=== PATIENT | female | born 1995 | race Two or more races ===

== ENCOUNTER 2024-04-19 08:12 | Inpatient (IN) | payer MEDICAID, OTHER ==
[~2024-04-19] VITALS: Ht 180.3 cm; Wt 56.6 kg
--- NOTE | 2024-04-19 08:53 | ED.PDOC ---
History of Present Illness HPI Comments 28-year-old female who presents to the ER with no prior history associated to the chief complaint of chest pain for the past 1 week. On having tight and pressure-like chest pain as well as sided of the chest and radiate down to the epigastric area. Patient notes on having shortness of breath as well. PMHx depression and anxiety. SHx of DNCx2 and hernia repair. Social history of vape use but denies alcohol and substance use. Denies chills fever, N/V/D,or other associated symptoms, modifiers, or recent injuries at this time. 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 History Family History Family History: Reviewed,noncontributory to illness, Unknown Social History Smoker: Other (Vape) Alcohol: Denies ETOH Use Drugs: Denies Drug Use Lives In: Home Constitutional: denies: chills, diaphoresis, fatigue, fever, malaise, sweats, weakness, others EENTM: denies: blurred vision, double vision, ear bleeding, ear discharge, ear drainage, ear pain, ear ringing, eye pain, eye redness, hearing loss, mouth pain, mouth swelling, nasal discharge, nose bleeding, nose congestion, nose pain, photophobia, tearing, throat pain, throat swelling, voice changes, others Respiratory: denies: cough, hemoptysis, orthopnea, SOB at rest, shortness of breath, SOB with excertion, stridor, wheezing, others Cardiovascular: reports: chest pain; denies: dizzy spells, diaphoresis, Dyspnea on exertion, edema, irregular heart beat, left arm pain, lightheadedness, palpi tations, PND, syncope, others Gastrointestinal: denies: abdomen distended, abdominal pain, blood streaked bowels, constipated, diarrhea, dysphagia, difficulty swallowing, hematemesis, melena, nausea, poor appetite, poor fluid intake, rectal bleeding, rectal pain, vomiting, others Genitourinary: denies: abnormal vagina bleeding, burning, dyspareunia, dysuria, flank pain, frequency, hematuria, incontinence, pain, , vagina discharge, urgency, others Neurological: denies: dizziness, fainting, headache, left sided numbness, left sided weakness, numbness, paresthesia, pre-existing deficit, right sided numbness, right sided weakness, seizure, speech problems, tingling, tremors, weakness, others Musculoskeletal: denies: back pain, gout, joint pain, joint swelling, muscle pain, muscle stiffness, neck pain, others Integumetry: denies: bruises, change in color, change in hair/nails, dryness, laceration, lesions, lumps, rash, wounds, others Allergic/Immunocompromised: denies: Difficulty Healing, Frequent Infections, Hives, Itching, others Hematologic/Lymphatic: denies: anemia, blood clots, easy bleeding, easy bru ising, swollen glands, others Endocrine: denies: excessive hunger, excessive sweating, excessive thirst, e xcessive urination, flushing, intolerance to cold, intolerance to heat, unexplained weight gain, unexplained weight loss, others Psychiatric: denies: anxiety, bipolar disorder, depression, hopeless, panic disorder, schizophrenia, sleepless, suicidal, others All Other Systems: Reviewed and Negative Physical Exam General Appearance: No Apparent Distress, Normal HEENT: Normal ENT Inspection, Pharynx Normal, TMs Normal Neck: Full Range of Motion, Non-Tender, Normal, Normal Inspection Respiratory: Chest Non-Tender, Lungs Clear, No Accessory Muscle Use, No Respiratory Distress, Normal Breath Sounds Cardiovascular: No Edema, No JVD, No Murmur, No Gallop, Normal Peripheral Pulses, Regular Rate/Rhythm Breast Exam: Deferred Gastrointestinal: No Organomegaly, Non Tender, No Pulsatile Mass, Normal Bowel Sounds, Soft Genitalia: Deferred Pelvic: Deferred Rectal: Deferred Extremities: No calf tenderness, Normal capillary refill, Normal inspection, Normal range of motion, Non-tender, No pedal edema Musculoskeletal : Apperance: Normal Neurologic: Alert, sergeant of officers II-XII nml as Tested, No Motor Deficits, Normal Affect, Normal Mood, No Sensory Deficits Cerebellar Function: Normal Reflexes: Normal Skin: Dry, Normal Color, Warm Lymphatic: No Adenopathy Was a procedure done? Was a procedure done?: No Differential Dx Considerations may include: angina, ptx, pe, pneumonia, lung mass, costochondritis X-Ray, Labs, Meds, VS Vital Signs Date Time Temp Pulse Resp B/P (MAP) Pulse Ox O2 Delivery O2 Flow Rate FiO2 04/19/24 15:18 75 18 118/80 (93) 100 04/19/24 11:09 97.9 85 14 108/79 (89) 99 97.9 04/19/24 09:16 69 04/19/24 09:04 77 04/19/24 09:04 77 16 103/70 (81) 98 04/19/24 08:19 70 04/19/24 08:15 98.0 76 16 111/74 (86) 100 Lab Test 04/19/24 09:21 04/19/24 08:25 Range/Units Troponin I High Sensitivity < 3 L < 3 L </=34 ng/L White Blood Count 4.3 L 4.4-10.8 10^3/uL Red Blood Count 5.00 4.0-5.20 10^6/uL Hemoglobin 14.8 12.2-16.2 g/dL Hematocrit 44.4 36.0-46.0 % Mean Corpuscular Volume 88.8 80.0-100.0 fL Mean Corpuscular Hemoglobin 29.5 28.0-32.0 pg Mean Corpuscular Hemoglobin Concent 33.3 32.0-36.0 g/dL Red Cell Distribution Width 15.3 H 11.8-14.3 % Platelet Count 173 140-450 10^3/uL Mean Platelet Volume 9.5 6.9-10.8 fL Neutrophils (%) (Auto) 44.9 37.0-80.0 % Lymphocytes (%) (Auto) 44.3 10.0-50.0 % Monocytes (%) (Auto) 6.2 0.0-12.0 % Eosinophils (%) (Auto) 4.1 0.0-7.0 % Basophils (%) (Auto) 0.5 0.0-2.0 % Neutrophils # (Auto) 1.9 1.6-8.6 10 ^3/uL Lymphocytes # (Auto) 1.9 0.4-5.4 10 ^3/uL Monocytes # (Auto) 0.3 0-1.3 10 ^3/uL Eosinophils # (Auto) 0.2 0-0.8 10 ^3/uL Basophils # (Auto) 0 0-0.2 10 ^3/uL Nucleated Red Blood Cells 0.1 % Sodium Level 143 136-145 mmol/L Potassium Level 4.6 3.5-5.1 mmol/L Chloride Level 111 H 98-107 mmol/L Carbon Dioxide Level 27 20-31 mmol/L Anion Gap 5 5-15 Blood Urea Nitrogen 9 9-23 mg/dL Creatinine 0.89 0.550-1.02 mg/dL Glomerular Filtration Rate Calc 90 >90 mL/min BUN/Creatinine Ratio 10.1 10.0-20.0 Serum Glucose 91 74-106 mg/dL Calcium Level 9.8 8.7-10.4 mg/dL Beta HCG, Quantitative 1.7 1.5-4.2 mIU/mL Current Medications Medications (Trade) Dose Ordered Sig/Nydia Route Start Time Stop Time Status Last Admin Aspirin 162 mg ONCE ONCE PO 04/19/24 08:45 04/19/24 08:47 DC 04/19/24 08:59 Time of 1ST Reevaluation: 09:10 Reevaluation 1ST: Unchanged Time of 2ND Reevaluation: 15:28 Reevaluation 2ND: Unchanged Patient Education/Counseling: Diagnosis, Treatment, Prognosis Family Education/Counseling: No Family Present Additional Information External Notes-none Ordered Tests-EKG tests ordered and results reviewed- cbc, chem, trop, hcg Independent Hx or Reviewed Results- cxr. 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 also is on hormonal contraception. however, she does not have PE. for the ptx, she will be admitted for observation for resolution, with O2 therapy Departure 1 Departure Time of Disposition: 15:32 Impression: Primary Impression: Chest pain Qualified Codes: R07.9 - Chest pain, unspecified Additional Impression: Pneumothorax Qualified Codes: J93.11 - Primary spontaneous pneumothorax Disposition: ADMITTED INPATIENT Admit to: Tele Condition: Stable Discharged With: Self Critical Care Note Critical Care Time?: Yes (55 min-critical care time only) Critical care comment: due to the real possibility of patient's condition deteriorating, his care requires my highest attention and readiness to intervene. i assessed the patient, ordered the proper tests and treatments, reassessed him for response, formulated a plan, discussed it with medical personnel, and consultants,. total time include more than 50% face to face contact and does not include any procedures Stability Stability form required: No Heart Score Heart Score: Heart Score Response (Comments) Value History Slightly Suspicious 0 EKG Normal 0 Age <45 0 Risk Factors No known risk factors 0 Troponin Normal limit 0 Total 0 I personally scribed for TRIP CHAVEZ MD ([email or web address]) on 04/19/24 at 08:53. Electronically submitted by David Cool ([email or web address]). TRIP CHAVEZ MD Apr 19, 2024 08:53
[2024-04-19 08:59] LABS: Basophils # (auto) 0 10 ^3/uL (0-0.2); Basophils % (auto) 0.5 % (0.0-2.0); Eosinophils # (auto) 0.2 10 ^3/uL (0-0.8); Eosinophils % (auto) 4.1 % (0.0-7.0); Hematocrit 44.4 % (36.0-46.0); Hemoglobin 14.8 g/dL (12.2-16.2); Lymphocytes # (auto) 1.9 10 ^3/uL (0.4-5.4); Lymphocytes % (auto) 44.3 % (10.0-50.0); Mean Corpuscular Hemoglobin 29.5 pg (28.0-32.0); Mean Corpuscular Hgb Conc. 33.3 g/dL (32.0-36.0); Mean Corpuscular Volume 88.8 fL (80.0-100.0); Monocytes # (auto) 0.3 10 ^3/uL (0-1.3); Monocytes % (auto) 6.2 % (0.0-12.0); Neutrophils # (auto) 1.9 10 ^3/uL (1.6-8.6); Neutrophils % (auto) 44.9 % (37.0-80.0); Nucleated Red Blood Cells % 0.1 %; Platelet Count (auto) 173 10^3/uL (140-450); Red Cell Distribution Width 15.3 % (11.8-14.3); White Blood Cell 4.3 10^3/uL (4.4-10.8)
[2024-04-19] MEDS: ASPirin 81 mg TAB PO ONE (08:59)
[2024-04-19 09:15] LABS: Chloride 111 mmol/L (98-107); Potassium 4.6 mmol/L (3.5-5.1); Sodium 143 mmol/L (136-145)
[2024-04-19 09:16] LABS: Anion Gap 5 (5-15); Carbon Dioxide 27 mmol/L (20-31)
[2024-04-19 09:17] LABS: Calcium 9.8 mg/dL (8.7-10.4)
--- NOTE | 2024-04-19 09:18 | ECG ---
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
[2024-04-19 09:21] LABS: Glucose 91 mg/dL (74-106)
[2024-04-19 09:22] LABS: BUN/Creatinine Ratio 10.1 (10.0-20.0); Blood Urea Nitrogen 9 mg/dL (9-23)
--- NOTE | 2024-04-19 12:24 | DVH ---
CHEST RADIOGRAPH Indication: cp Technique: Single frontal view of the chest was obtained COMPARISON: None FINDINGS: Lines and Tubes: None Lungs: Clear Pleura: No effusion. Prominent lucency in the left lung base. Cardiomediastinal contours: Unremarkable Bones: Scoliosis. IMPRESSION: Prominent lucency in the left lung base. Differential considerations could include pneumothorax, joe fact from patient positioning or prominent cyst/bleb in the left lung base. Clinical correlation advi sed. CT could be obtained to further evaluate if clinically indicated.
[2024-04-19] MEDS: IOHEXOL 350 MG/ML 100ML IJ ONE (14:21)
--- NOTE | 2024-04-19 14:57 | DVH ---
CTA Chest with intravenous contrast INDICATION: r/o PE, ptx COMPARISON: None TECHNIQUE: Multidetector spiral CTA of the chest was performed of the chest with intravenous contrast . PULMONARY ANGIOGRAPHY PROTOCOL was utilized using a bolus-tracking technique centered on the main p ulmonary artery. Axial, coronal and sagittal multiplanar and MIP reformats were performed. Radiation Dose : 1. Chest: CTDI volume is 20.7 mGy. Dose-length product is 185 mGy*cm The dose indicators for CT are the volume Computed Tomography (CT) Dose Index (CTDIvol) and the Dose Length Product (DLP), and are measured in units of mGy and mGy-cm, respectively. These indicators are not patient dose, but values generated from the CT scanner acquisition factors. The report includes radiation exposure data for exposures received during this examination. Findings: Pulmonary artery: No pulmonary embolism Lower neck: Normal thyroid. Lungs: No focal consolidation. Large bullae is seen in the left lower lobe which measures up to 9.8 cm. Heart/Vascular Structures: Normal heart size. No pericardial effusion. Lymph Nodes: No adenopathy Pleura: Trace left apical pneumothorax. No effusion. Musculoskeletal: No acute osseous abnormality. Soft tissues: Normal. Upper abdomen: Limited portions of the upper abdomen are unremarkable. IMPRESSION: 1. No pulmonary embolism. 2. Trace left apical pneumothorax. 3. Large bullae in the left lower lobe measures up to 9.8 cm.
--- NOTE | 2024-04-19 16:04 | DVHHP2 ---
History of Present Illness Reason for Visit: chest pain History of Present Illness 28 yo patient with a stated history of anxiety and depression came in for evaluation of chest pain described more pleuritic in nature was evaluated in the ed with a chest xray and ct can that showed suspected pneumothorax patient recommended for evaluation Review of Systems Constitutional: No: Fever, Chills, Sweats, Weakness, Malaise, Other Eyes: No: Pain, Vision change, Conjunctivae inflammation, Eyelid inflammation, Other, Redness ENT: No: Ear pain, Ear discharge, Nose pain, Nose discharge, Nose congestion, Mouth pain, Mouth swelling, Throat pain, Throat swelling, Other Respiratory: Shortness of breath; No: Cough, Dry, SOB with excertion, Wheezing, Hemoptysis, Pleuritic Pain, Sputum, Wheezing, Other Cardiovascular: Chest Pain; No: Palpitations, Orthopnea, Paroxysmal Noc. Dyspnea, Edema, Lt Headedness, Other Gastrointestinal: No: Nausea, Vomiting, Abdominal Pain, Diarrhea, Constipation, Melena, Hematochezia, Other Genitourinary: No Dysuria, No Frequency, No Incontinence, No Hematuria, No Retention, No Other Musculoskeletal: No: other, neck pain, shoulder pain, arm pain, back pain, hand pain, leg pain, foot pain Skin: No: Rash, Lesions, Jaundice, Bruising, Other Neurological: No: Weakness, Numbness, Incoordination, Change in speech, Confusion, Seizures, Other Allergies: Coded Allergies: Famotidine (Verified Allergy, Unknown, 04/19/24) Exam Vital Signs Vital Signs Date Time Temp Pulse Resp B/P (MAP) Pulse Ox O2 Delivery O2 Flow Rate FiO2 04/19/24 15:18 75 18 118/80 (93) 100 04/19/24 11:09 97.9 97.9 General Appearance: Alert, Oriented X3 HEENT: Atraumatic, PERRLA Respiratory: Clear to auscultation, Normal air movement Cardiovascular: Regular rate, Normal S1, Normal S2 Abdominal: Normal bowel sounds, Soft, No tenderness Extremities: No clubbing, No cyanosis Skin: No rashes, No breakdown Neuro: Normal gait, Normal speech Psych/Mental Status: Mood NL Labs/Xrays Labs Test 04/19/24 09:21 04/19/24 08:25 Range/Units Troponin I High Sensitivity < 3 L </=34 ng/L White Blood Count 4.3 L 4.4-10.8 10^3/uL Red Blood Count 5.00 4.0-5.20 10^6/uL Hemoglobin 14.8 12.2-16.2 g/dL Hematocrit 44.4 36.0-46.0 % Mean Corpuscular Volume 88.8 80.0-100.0 fL Mean Corpuscular Hemoglobin 29.5 28.0-32.0 pg Mean Corpuscular Hemoglobin Concent 33.3 32.0-36.0 g/dL Red Cell Distribution Width 15.3 H 11.8-14.3 % Platelet Count 173 140-450 10^3/uL Mean Platelet Volume 9.5 6.9-10.8 fL Neutrophils (%) (Auto) 44.9 37.0-80.0 % Lymphocytes (%) (Auto) 44.3 10.0-50.0 % Monocytes (%) (Auto) 6.2 0.0-12.0 % Eosinophils (%) (Auto) 4.1 0.0-7.0 % Basophils (%) (Auto) 0.5 0.0-2.0 % Neutrophils # (Auto) 1.9 1.6-8.6 10 ^3/uL Lymphocytes # (Auto) 1.9 0.4-5.4 10 ^3/uL Monocytes # (Auto) 0.3 0-1.3 10 ^3/uL Eosinophils # (Auto) 0.2 0-0.8 10 ^3/uL Basophils # (Auto) 0 0-0.2 10 ^3/uL Nucleated Red Blood Cells 0.1 % Sodium Level 143 136-145 mmol/L Potassium Level 4.6 3.5-5.1 mmol/L Chloride Level 111 H 98-107 mmol/L Carbon Dioxide Level 27 20-31 mmol/L Anion Gap 5 5-15 Blood Urea Nitrogen 9 9-23 mg/dL Creatinine 0.89 0.550-1.02 mg/dL Glomerular Filtration Rate Calc 90 >90 mL/min BUN/Creatinine Ratio 10.1 10.0-20.0 Serum Glucose 91 74-106 mg/dL Calcium Level 9.8 8.7-10.4 mg/dL Beta HCG, Quantitative 1.7 1.5-4.2 mIU/mL Assessment/Plan Assessment/Plan Marek Med/Surg Pneumothorax Nontraumatic High Flow conservative attempt to reduce Pulmonary evaluation possible underlying autoimmune source no acute signs of infection prn breathing treatments if required Plan discussed with: Patient Problem List: (1) Pneumothorax (2) Chest pain Date of Service: Apr 19, 2024 Billing Provider: SAURABH PETTIT MD Common Visit Codes: 71721-[id number] INP/OBS CARE (HIGH) SAURABH PETTIT MD Apr 19, 2024 16:04
[2024-04-19] MEDS ORDERED: ONDANSETRON HCL 4 MG/2 ML VIAL IV PRN (17:45)
[2024-04-19] MEDS ORDERED: HYDROcodone-ACET 5/325MG TAB PO PRN (17:45)
[2024-04-19] MEDS ORDERED: ACETAMINOPHEN 325 MG TAB PO PRN (17:45)
[2024-04-19] MEDS ORDERED: DOCUSATE SOD 100 MG CAP PO PRN (17:45)
[2024-04-19] MEDS ORDERED: MAALOX PLUS or MAALOX 30 ML PO PRN (17:45)
[2024-04-19] MEDS ORDERED: MORPHINE SULFATE INJ 2 MG/ml SYRG IV PRN (17:45)
[2024-04-19] MEDS ORDERED: guaiFENesin 200 MG/10 ML UD PO PRN (18:00)
--- NOTE | 2024-04-19 18:02 | DVHINCON2 ---
Date of service: Apr 19, [address] Blanco Reason for Consultation Apical pneumothorax, large left lower lobe bullae History of Present Illness 28-year-old woman history of anxiety, depression who presented with a chief complaint of chest pain for the last week. She was having pressure-like chest pain. He was on left side. Radiates to epigastric area. She notes shortness of breath as well. She has a history of vaping. She denies any alcohol or substance abuse. No fever or chills. No nausea, vomiting, diarrhea constipation. Pulmonary consultation is called for evaluation of apical pneumothorax and large left lower lobe bullae. Review of systems: 14 point review of systems is negative unless otherwise noted above. Past medical history: Anxiety, depression Past surgical history: D and C x2, hernia repair Medications: Reviewed Allergies: No known drug allergies. Family history: No family history of premature CAD. No family history of lung disease. Social history: Vaper, no alcohol or illicit drug use. Lives at home. Allergies: Coded Allergies: Famotidine (Verified Allergy, Unknown, 04/19/24) Current Medications Current Medications Medications (Trade) Dose Ordered Sig/Nydia Route PRN Reason Start Time Stop Time Status Last Admin Lorazepam (Ativan Tablet) 0.5 mg Q6HP PRN PO ANXIETY 04/19/24 17:45 Al Hydrox/Mg Hydrox/Simethicone (Maalox Plus) 30 ml Q6HP PRN PO FOR STOMACH DISTRESS 04/19/24 17:45 Docusate Sodium (Colace Capsule) 100 mg BIDPRN PRN PO FOR CONSTIPATION 04/19/24 17:45 Acetaminophen (Tylenol Tablet) 650 mg Q6HP PRN PO PAIN SCALE 1-3 OR TEMP>100.4 04/19/24 17:45 Temazepam (Restoril) 15 mg QHSP PRN PO FOR INSOMNIA 04/19/24 17:45 Acetaminophen/ Hydrocodone Bitart ([place] 5/325MG Tab) 1 tab Q4HP PRN PO MODERATE PAIN (4-6 PAIN SCALE) 04/19/24 17:45 Ondansetron HCl (Zofran) 4 mg Q4HP PRN IV NAUSEA / VOMITING 04/19/24 17:45 Morphine Sulfate 2 mg Q4HPRN PRN IV SEVERE PAIN (7-10 PAIN SCALE) 04/19/24 17:45 Vital Signs Vital Signs Date Time Temp Pulse Resp B/P (MAP) Pulse Ox O2 Delivery O2 Flow Rate FiO2 04/19/24 16:47 Room Air* 0 21 04/19/24 15:18 75 18 118/80 (93) 100 04/19/24 11:09 97.9 97.9 Physical Exam Gen.: Patient lying in bed in no apparent distress. She is breathing comfortably on room air. Head: Normocephalic, atraumatic Eyes: EOMI/PERRLA. Ears: Normal hearing. Normal anatomy. Neck/trachea: Trachea midline, supple. Nose: Normal external anatomy. Mouth: Moist mucous membranes. Chest: Fair air entry bilaterally. No wheezing or rhonchi. Cardio vascular: Positive S1, positive S2. Regular rate and rhythm. Abdomen: Positive bowel sounds in all 4 quadrants. Soft, non-tender, non- distended. : Deferred. Rectal: Deferred Skin: Warm, dry. Extremities: 2+ radial pulses bilaterally. No lower extremity edema. Neuro: Awake, alert, oriented x3. No gross motor or sensory deficits. Cranial nerves II through XII intact. Gait not assessed. Labs/Diagnostic Data Labs Test 04/19/24 09:21 04/19/24 08:25 Range/Units Troponin I High Sensitivity < 3 L </=34 ng/L White Blood Count 4.3 L 4.4-10.8 10^3/uL Red Blood Count 5.00 4.0-5.20 10^6/uL Hemoglobin 14.8 12.2-16.2 g/dL Hematocrit 44.4 36.0-46.0 % Mean Corpuscular Volume 88.8 80.0-100.0 fL Mean Corpuscular Hemoglobin 29.5 28.0-32.0 pg Mean Corpuscular Hemoglobin Concent 33.3 32.0-36.0 g/dL Red Cell Distribution Width 15.3 H 11.8-14.3 % Platelet Count 173 140-450 10^3/uL Mean Platelet Volume 9.5 6.9-10.8 fL Neutrophils (%) (Auto) 44.9 37.0-80.0 % Lymphocytes (%) (Auto) 44.3 10.0-50.0 % Monocytes (%) (Auto) 6.2 0.0-12.0 % Eosinophils (%) (Auto) 4.1 0.0-7.0 % Basophils (%) (Auto) 0.5 0.0-2.0 % Neutrophils # (Auto) 1.9 1.6-8.6 10 ^3/uL Lymphocytes # (Auto) 1.9 0.4-5.4 10 ^3/uL Monocytes # (Auto) 0.3 0-1.3 10 ^3/uL Eosinophils # (Auto) 0.2 0-0.8 10 ^3/uL Basophils # (Auto) 0 0-0.2 10 ^3/uL Nucleated Red Blood Cells 0.1 % Sodium Level 143 136-145 mmol/L Potassium Level 4.6 3.5-5.1 mmol/L Chloride Level 111 H 98-107 mmol/L Carbon Dioxide Level 27 20-31 mmol/L Anion Gap 5 5-15 Blood Urea Nitrogen 9 9-23 mg/dL Creatinine 0.89 0.550-1.02 mg/dL Glomerular Filtration Rate Calc 90 >90 mL/min BUN/Creatinine Ratio 10.1 10.0-20.0 Serum Glucose 91 74-106 mg/dL Calcium Level 9.8 8.7-10.4 mg/dL Beta HCG, Quantitative 1.7 1.5-4.2 mIU/mL Assessment Impression Pneumothorax, apical Large left lower lobe bulla Vaping Anxiety/depression Plan: CT of the chest report and images reviewed. Trace left apical pneumothorax. Large bulla in the left lower lobe that measures 9.8 cm. No acute pulmonary embolism. Monitor closely due to risk of decompensation. On room air Antitussive PRN Pain control Avoid oversedation OBtain CXR in the AM for interval changes. Prognosis: Guarded given multiple comorbidities. Rest of plan per hospitalist and other consultants. Thank you Dr. Blanco for allowing me to participate in this patient's care. Further recommendations will depend on patient's clinical course. Please do not hesitate to contact me if you have any questions or concerns. This medical document was created using an electronic medical record system with [employer] system. Although this document has been carefully reviewed, there may still be some phonetic and typographical errors. These areas are purely typographical due to imperfections of the software programs, and do not reflect any compromise in the patient's medical care. Plan discussed with: Patient, Other (RN, MD) SHAILESH RAE MD Apr 19, 2024 18:02
[2024-04-19] MEDS ORDERED: GUAN1TAB11 PO (18:16)
[2024-04-19] MEDS ORDERED: HYDR25CA PO (18:16)
[2024-04-19] MEDS ORDERED: MIRT1TAB40 PO (18:16)
[2024-04-19] MEDS: LORazepam 0.5 MG TAB PO PRN (18:22)
[2024-04-19 18:31] VITALS: PULSE 79; RESP 20; O2SAT 96
[2024-04-19 19:12] VITALS: PULSE 68; RESP 20; O2SAT 99
[2024-04-19] MEDS: TEMAZEPAM 15 MG CAP PO PRN (21:25)
[2024-04-19 21:40] VITALS: BP 110/63; PULSE 69; RESP 19; TEMP 98.8; O2SAT 97
[2024-04-19 22:00] VITALS: BP 110/63; PULSE 69; RESP 15; TEMP 98.8; O2SAT 97; O2SAT 98
[2024-04-20 05:00] VITALS: BP 108/66; PULSE 59; RESP 19; TEMP 98; O2SAT 97
[2024-04-20 07:09] LABS: Basophils # (auto) 0 10 ^3/uL (0-0.2); Basophils % (auto) 0.6 % (0.0-2.0); Eosinophils # (auto) 0.2 10 ^3/uL (0-0.8); Eosinophils % (auto) 4.2 % (0.0-7.0); Hematocrit 41.8 % (36.0-46.0); Hemoglobin 13.9 g/dL (12.2-16.2); Lymphocytes # (auto) 2.2 10 ^3/uL (0.4-5.4); Mean Corpuscular Hemoglobin 29.7 pg (28.0-32.0); Mean Corpuscular Hgb Conc. 33.2 g/dL (32.0-36.0); Mean Corpuscular Volume 89.3 fL (80.0-100.0); Monocytes # (auto) 0.4 10 ^3/uL (0-1.3); Monocytes % (auto) 7.1 % (0.0-12.0); Neutrophils # (auto) 2.6 10 ^3/uL (1.6-8.6); Neutrophils % (auto) 47.1 % (37.0-80.0); Platelet Count (auto) 169 10^3/uL (140-450); Red Blood Cells 4.68 10^6/uL (4.0-5.20); Red Cell Distribution Width 15.2 % (11.8-14.3); White Blood Cell 5.4 10^3/uL (4.4-10.8)
[2024-04-20 07:10] LABS: Anion Gap 8 (5-15); Calcium 9.5 mg/dL (8.7-10.4); Carbon Dioxide 24 mmol/L (20-31); Chloride 110 mmol/L (98-107); Potassium 4.2 mmol/L (3.5-5.1); Sodium 142 mmol/L (136-145)
[2024-04-20 07:16] LABS: BUN/Creatinine Ratio 8.6 (10.0-20.0); Blood Urea Nitrogen 7 mg/dL (9-23); Glucose 97 mg/dL (74-106)
[2024-04-20 09:18] VITALS: BP 105/62; PULSE 72; RESP 15; TEMP 97.6; O2SAT 99
--- NOTE | 2024-04-20 09:38 | DVH ---
CHEST RADIOGRAPH Indication: interval changes Technique: Single frontal view of the chest was obtained Comparison: XY CHEST PORTABLE on DOS: 04/19/24 FINDINGS: Lines and Tubes: None Lungs: No focal consolidation. Pleura: No effusion. Stable trace left pneumothorax Cardiomediastinal contours: Unremarkable Bones: No acute osseous abnormality. IMPRESSION: Stable trace left pneumothorax
[2024-04-20 13:00] VITALS: BP 112/70; PULSE 68; RESP 15; TEMP 98.4; O2SAT 95
[2024-04-20] MEDS ORDERED: LORazepam 0.5 MG TAB PO PRN (15:00)
[2024-04-20 17:41] VITALS: BP 110/74; PULSE 98; RESP 16; TEMP 98.6; O2SAT 98
--- NOTE | 2024-04-20 18:48 | DVHPN2 ---
Subjective --04/20-nurse informs that patient has been anxious but otherwise stable. On visit patient appears well, no acute distress. Patient is using Ativan p.o. for her anxiety. She does have some risk factors of vaping and THC smoking. PULM is following, morning x-ray appears stable,: Launch to eval overnight. Patient is amendable to stay for the night. Continue to watch. Patient is on room air, no oxygen needed. Reviewed: H&P Changes from previous H/P or p: No Changes General: Per HPI Musculoskeletal: No other, No neck pain, No shoulder pain, No arm pain, No back pain, No hand pain, No leg pain, No foot pain Skin: No Rash, No Lesions, No Jaundice, No Bruising, No Other Objective Vitals Vital Signs Date Time Temp Pulse Resp B/P (MAP) Pulse Ox O2 Delivery O2 Flow Rate FiO2 04/20/24 17:41 98.6 98 16 110/74 (86) 98 98.6 04/20/24 07:45 Room Air* 0 21 Intake/Output Intake and Output 04/20/24 07:00 Intake Total 325 ml Balance 325 ml Intake Oral 325 ml # Voids 4 # Bowel Movements 1 Exam GEN: Healthy appearing, well-developed, NAD. Tall, thin female HEENT: NC/AT; MMM. CV: RRR, no m/r/g. LUNGS: CTAB, no w/r/c. ABD: Soft, NT/ND, NBS, no masses or organomegaly. EXT: skin Warm, well perfused. no rashes. No clubbing, cyanosis, or edema. NEURO: Ambulating with no limitations. No focal deficits. Medications Current Medications Medications Dose Ordered Sig/Nydia Route Start Time Stop Time Status Last Admin Dose Admin Al Hydrox/Mg Hydrox/Simethicone 30 ml Q6HP PRN PO 04/19/24 17:45 Docusate Sodium 100 mg BIDPRN PRN PO 04/19/24 17:45 Acetaminophen 650 mg Q6HP PRN PO 04/19/24 17:45 Temazepam 15 mg QHSP PRN PO 04/19/24 17:45 04/19/24 21:25 15 MG Acetaminophen/ Hydrocodone Bitart 1 tab Q4HP PRN PO 04/19/24 17:45 Ondansetron HCl 4 mg Q4HP PRN IV 04/19/24 17:45 Morphine Sulfate 2 mg Q4HPRN PRN IV 04/19/24 17:45 Guaifenesin 200 mg Q6HR PRN PO 04/19/24 18:00 Lorazepam 0.5 mg Q6HP PRN PO 04/20/24 15:00 Hydroxyzine HCl 10 mg Q6HP PRN PO 04/20/24 15:00 Laboratory Results Laboratory Tests 04/20/24 05:52 Chemistry Test 04/20/24 05:52 Calcium Level 9.5 mg/dL (8.7-10.4) Labs and/or images reviewed: Labs reviewed by me, Image(s) reviewed by me Assessment/Plan Assessment/Plan --04/20-nurse informs that patient has been anxious but otherwise stable. On visit patient appears well, no acute distress. Patient is using Ativan p.o. for her anxiety. She does have some risk factors of vaping and THC smoking. PULM is following, morning x-ray appears stable,: Launch to eval overnight. Patient is amendable to stay for the night. Continue to watch. Patient is on room air, no oxygen needed. Left-sided pneumothorax, apical Large left lower lobe bulla Vaping Anxiety/depression Chest pain Shortness of breath -patient has been suffering from anxiety for many months now. This episode she was resting in bed while she felt pop in her left chest wall and could hear some crackles sounds. The pain was sudden onset which was associated with shortness of breath. The shortness of breath and chest pain were unlike her prior anxiety episodes leading to visit. CTA is negative for PE, but a left pneumothorax is noted with left lower lobe bullae 9.8 cm. -Keep patient on med tele -oxygen if needed with SpO2 goal of more than 92% -for anxiety: po Hydroxyzine 1st 9 p.r.n., Ativan p.o. 2nd line p.r.n. Diet regular DVT prophylaxis-patient is ambulatory GI prophylaxis-patient tolerating diet Med tele Plan discussed with: Patient My Orders Orders - YASHIRA THOMAS MD Procedure Category Date Status Time Lorazepam Tablet PHA 04/20/24 In Process (Ativan Tablet) 15:00 Hydroxyzine Oral PHA 04/20/24 In Process (Vistaril Oral) 15:00 Date of Service: Apr 20, 2024 Billing Provider: YASHIRA THOMAS MD Common Visit Codes: [id number] INP/OBS CARE(HIGH) YASHIRA THOMAS MD Apr 20, 2024 18:48
[2024-04-20 19:56] VITALS: RESP 16
[2024-04-20 21:00] VITALS: BP 106/64; PULSE 78; RESP 18; TEMP 97.7; O2SAT 99
--- NOTE | 2024-04-20 21:39 | DVHPN2 ---
Progress Note - Dictate Date Seen: Apr 20, 2024 Medical Necessity Reason Pt with a Central, PICC or Fol: No Subjective Patient seen and examined at bedside. Breathing comfortably on room air. Overnight events reviewed. vital signs Vital Sign Date Time Temp Pulse Resp B/P (MAP) Pulse Ox O2 Delivery O2 Flow Rate FiO2 04/20/24 19:56 16 Room Air* 0 21 04/20/24 17:41 98.6 98 110/74 (86) 98 98.6 Total Intake and Output 04/19/24 04/19/24 04/20/24 15:00 23:00 07:00 Intake Total 325 ml Balance 325 ml medications Current Medications Medications Dose Ordered Sig/Nydia Route Start Time Stop Time Status Last Admin Dose Admin Al Hydrox/Mg Hydrox/Simethicone 30 ml Q6HP PRN PO 04/19/24 17:45 Docusate Sodium 100 mg BIDPRN PRN PO 04/19/24 17:45 Acetaminophen 650 mg Q6HP PRN PO 04/19/24 17:45 Temazepam 15 mg QHSP PRN PO 04/19/24 17:45 04/20/24 20:35 15 MG Acetaminophen/ Hydrocodone Bitart 1 tab Q4HP PRN PO 04/19/24 17:45 Ondansetron HCl 4 mg Q4HP PRN IV 04/19/24 17:45 Morphine Sulfate 2 mg Q4HPRN PRN IV 04/19/24 17:45 Guaifenesin 200 mg Q6HR PRN PO 04/19/24 18:00 Lorazepam 0.5 mg Q6HP PRN PO 04/20/24 15:00 Hydroxyzine HCl 10 mg Q6HP PRN PO 04/20/24 15:00 objective Gen.: Patient lying in bed in no apparent distress. Breathing on room air. Head: Normocephalic, atraumatic. Eyes: EOMI/PERRLA. Ears: Normal hearing. Normal anatomy. Neck/trachea: Trachea midline, supple. Nose: Normal external anatomy. Mouth: Moist mucous membranes. Chest: Decreased air entry bilaterally. No wheezing or rhonchi. Cardiovascular: Positive S1, positive S2. Regular rate and rhythm. Abdomen: Positive bowel sounds in all 4 quadrants. Soft, non-tender, non- distended. : Deferred. Rectal: Deferred. Skin: Warm, dry. Intact. Extremities: 2+ radial pulses bilaterally. No lower extremity edema. Neuro: Awake, alert, oriented x3. No gross motor or sensory deficits. Cranial nerves II through XII intact. Gait not assessed. laboratory and microbiology Laboratory Tests 04/20/24 05:52 Test 04/20/24 05:52 Range/Units Serum Glucose 97 74-106 mg/dL Assessment/Plan Impression: Pneumothorax, apical Large left lower lobe bulla Vaping Anxiety/depression Events: Breathing on room air No respiratory distress. CXR shows trace left pneumothorax today. Obtain CXR in the AM to assess for interval changes. Patient is stable for discharge from the pulmonary standpoint if CXR stable in AM, i.e., no changes in pneumothorax. Antitussive PRN cough. Incentive spirometry Pain control Avoid oversedation Labs and imaging reviewed. Rest of plan as noted below. Plan: CT of the chest report and images reviewed. Trace left apical pneumothorax. Large bulla in the left lower lobe that measures 9.8 cm. No acute pulmonary embolism. Monitor closely due to risk of decompensation. On room air Antitussive PRN Pain control Avoid oversedation Obtain CXR in the AM for interval changes. Prognosis: Guarded given multiple comorbidities. Rest of plan per hospitalist and other consultants. Thank you Dr. Blanco for allowing me to participate in this patient's care. Further recommendations will depend on patient's clinical course. Please do not hesitate to contact me if you have any questions or concerns. This medical document was created using an electronic medical record system with [employer] dictation system. Although this document has been carefully reviewed, there may still be some phonetic and typographical errors. These areas are purely typographical due to imperfections of the software programs, and do not reflect any compromise in the patient's medical care. Plan discussed with: Patient, Other (SUZANNA Bashir) SHAILESH RAE MD Apr 20, 2024 21:39
[2024-04-21 01:00] VITALS: BP 94/63; PULSE 77; RESP 18; TEMP 98; O2SAT 100
[2024-04-21 05:00] VITALS: BP 105/60; PULSE 76; RESP 18; TEMP 98; O2SAT 98
[2024-04-21 06:17] LABS: Basophils # (auto) 0 10 ^3/uL (0-0.2); Basophils % (auto) 0.6 % (0.0-2.0); Eosinophils # (auto) 0.2 10 ^3/uL (0-0.8); Eosinophils % (auto) 4.2 % (0.0-7.0); Hematocrit 45.4 % (36.0-46.0); Hemoglobin 15.4 g/dL (12.2-16.2); Lymphocytes # (auto) 2.2 10 ^3/uL (0.4-5.4); Lymphocytes % (auto) 40.4 % (10.0-50.0); Mean Corpuscular Volume 88.1 fL (80.0-100.0); Monocytes # (auto) 0.4 10 ^3/uL (0-1.3); Monocytes % (auto) 6.5 % (0.0-12.0); Neutrophils # (auto) 2.7 10 ^3/uL (1.6-8.6); Neutrophils % (auto) 48.3 % (37.0-80.0); Nucleated Red Blood Cells % 0.1 %; Platelet Count (auto) 199 10^3/uL (140-450); Red Blood Cells 5.15 10^6/uL (4.0-5.20); Red Cell Distribution Width 15.5 % (11.8-14.3); White Blood Cell 5.6 10^3/uL (4.4-10.8)
--- NOTE | 2024-04-21 06:48 | DVH ---
CHEST RADIOGRAPH Indication: ASSESS INTERVAL CHANGES IN PTX Technique: Single frontal view of the chest was obtained Comparison: XY CHEST XRAY 1 VIEW on DOS: 04/20/24, XY CHEST PORTABLE on DOS: 04/19/24, XY CHEST XRAY 1 VIEW on DOS: 04/20/24 FINDINGS: Lines and Tubes: None Lungs: No focal consolidation. Pleura: No effusion. Stable trace left pneumothorax Cardiomediastinal contours: Unremarkable Bones: No acute osseous abnormality. IMPRESSION: Stable trace left pneumothorax
[2024-04-21 07:21] LABS: Alanine Aminotransferase 10 U/L (7-40); Alkaline Phosphatase 40 U/L (46-116); Anion Gap 8 (5-15); BUN/Creatinine Ratio 8.4 (10.0-20.0); Blood Urea Nitrogen 8 mg/dL (9-23); Calcium 10.3 mg/dL (8.7-10.4); Carbon Dioxide 26 mmol/L (20-31); Chloride 108 mmol/L (98-107); Glucose 100 mg/dL (74-106); Potassium 4.5 mmol/L (3.5-5.1); Sodium 142 mmol/L (136-145)
[2024-04-21 07:22] LABS: Albumin 4.4 g/dL (3.2-4.8); Aspartate Aminotransferase 9 U/L (13-40); Bilirubin, Total 1.1 mg/dL (0.2-1.0); Total Protein 7.1 g/dL (5.7-8.2)
[2024-04-21] MEDS: hydrOXYzine HCL 10 MG TAB PO PRN (07:50)
[2024-04-21 09:00] VITALS: BP 118/80; PULSE 85; RESP 16; TEMP 97.6; O2SAT 97
--- NOTE | 2024-04-21 09:44 | DVHDS2 ---
Discharge Summary Date of Admission Apr 19, 2024 at 17:44 Date of Discharge: Apr 21, 2024 Labs/Diagnostic Data: Laboratory Results Test 04/21/24 05:36 04/19/24 09:21 04/19/24 08:25 White Blood Count 5.6 10^3/uL (4.4-10.8) Red Blood Count 5.15 10^6/uL (4.0-5.20) Hemoglobin 15.4 g/dL (12.2-16.2) Hematocrit 45.4 % (36.0-46.0) Mean Corpuscular Volume 88.1 fL (80.0-100.0) Mean Corpuscular Hemoglobin 30.0 pg (28.0-32.0) Mean Corpuscular Hemoglobin Concent 34.0 g/dL (32.0-36.0) Red Cell Distribution Width 15.5 % (11.8-14.3) Platelet Count 199 10^3/uL (140-450) Mean Platelet Volume 9.2 fL (6.9-10.8) Neutrophils (%) (Auto) 48.3 % (37.0-80.0) Lymphocytes (%) (Auto) 40.4 % (10.0-50.0) Monocytes (%) (Auto) 6.5 % (0.0-12.0) Eosinophils (%) (Auto) 4.2 % (0.0-7.0) Basophils (%) (Auto) 0.6 % (0.0-2.0) Neutrophils # (Auto) 2.7 10 ^3/uL (1.6-8.6) Lymphocytes # (Auto) 2.2 10 ^3/uL (0.4-5.4) Monocytes # (Auto) 0.4 10 ^3/uL (0-1.3) Eosinophils # (Auto) 0.2 10 ^3/uL (0-0.8) Basophils # (Auto) 0 10 ^3/uL (0-0.2) Nucleated Red Blood Cells 0.1 % Sodium Level 142 mmol/L (136-145) Potassium Level 4.5 mmol/L (3.5-5.1) Chloride Level 108 mmol/L (98-107) Carbon Dioxide Level 26 mmol/L (20-31) Anion Gap 8 (5-15) Blood Urea Nitrogen 8 mg/dL (9-23) Creatinine 0.95 mg/dL (0.550-1.02) Glomerular Filtration Rate Calc 83 mL/min (>90) BUN/Creatinine Ratio 8.4 (10.0-20.0) Serum Glucose 100 mg/dL (74-106) Calcium Level 10.3 mg/dL (8.7-10.4) Total Bilirubin 1.1 mg/dL (0.2-1.0) Aspartate Amino Transferase (AST) 9 U/L (13-40) Alanine Aminotransferase (ALT) 10 U/L (7-40) Alkaline Phosphatase 40 U/L (46-116) Total Protein 7.1 g/dL (5.7-8.2) Albumin 4.4 g/dL (3.2-4.8) Troponin I High Sensitivity < 3 ng/L (</=34) Beta HCG, Quantitative 1.7 mIU/mL (1.5-4.2) Other Laboratory Tests 04/21/24 05:36 Brief Hx & Hospital Course: 28-year-old female with past medical history of anxiety ED with complaint of chest pain patient has history of having chest pain with anxiety attacks, she takes hydroxyzine p.r.n. which helps her symptoms. Denied prior to admit she was laying in bed when she felt a sudden onset of chest pain described as a pop . The chest pain was left chest wall 5th to 6th ICS. The pain was worse with deep inspiration and patient endorses that he was able to hear crackles sounds. This chest pain was associated with shortness of breath and was unlike her anxiety episodes, which was concerning and resulted in her seeking ED visit. She has history of smoking cigarettes/tobacco, which she switched to vaping. In ED, vital signs are stable. Chest x-ray with left lung base lucency concerning for possible pneumothorax or prominent cyst/bleb. CTA is negative for PE, but a left pneumothorax is noted with left lower lobe bullae 9.8 cm. Repeat chest x-rays show stable left pneumothorax, patient remains on room air, vital signs stable, symptoms improving. Plan is made to follow pneumothorax outpatient as described in plan below. Diagnosis: left pneumothorax, large left lung bullae Discharge plan: - continue home medications - f/u with DC clinic (repeat cxr, monitor ptx) and pulmonary clinic to monitor vitals and pneumothorax. - if develop worsening sudden onset SOB +/- chest pain, return to ED tucker Visitation and planning required 35 minutes Condition at Discharge: Fair Final Diagnosis/Problems List left pneumothorax, large left lung bullae Discharge Disposition: Home Discharge Instruct/Medications Diet: Regular Activity: No Restrictions, As Tolerated Follow Up/Referral: dc clinic, pcp, pulmonary Discharge Statement: "Patient was advised to return to the ER or call 911 if any headaches, dizziness, shortness of breath, chest pain, abdominal pain, bleeding, fevers, or worsening of medical condition. Patient was counseled about treatment plan, medications, possible side effects, patientverbalized understanding. All questions were answered to the best of my ability. This discharge took greater then 30 minutes in planning, reviewing documentation, counseling the patient, and discussing with other team members." ASSESSMENT ASSESSMENT Assessment left pneumothorax, large left lung bullae Date of Service: Apr 21, 2024 Billing Provider: YASHIRA THOMAS MD Common Visit Codes: 62254-RIP/OBS DISCH DAY >30min YASHIRA THOMAS MD Apr 21, 2024 09:44
--- NOTE | 2024-04-21 11:04 | ECG ---
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
--- NOTE | 2024-04-21 19:43 | DVHPN2 ---
Progress Note - Dictate Date Seen: Apr 21, 2024 Medical Necessity Reason Pt with a Central, PICC or Fol: No Subjective Patient seen and examined at bedside. Breathing comfortably on room air. Overnight events reviewed. vital signs Vital Sign Date Time Temp Pulse Resp B/P (MAP) Pulse Ox O2 Delivery O2 Flow Rate FiO2 04/21/24 09:00 97.6 85 16 118/80 (93) 97 97.6 04/21/24 08:15 Room Air* 0 21 Total Intake and Output 04/20/24 04/20/24 04/21/24 15:00 23:00 07:00 Intake Total 325 ml 400 ml Output Total 4 ml Balance 321 ml 400 ml objective Gen.: Patient lying in bed in no apparent distress. Breathing on room air. Head: Normocephalic, atraumatic. Eyes: EOMI/PERRLA. Ears: Normal hearing. Normal anatomy. Neck/trachea: Trachea midline, supple. Nose: Normal external anatomy. Mouth: Moist mucous membranes. Chest: Decreased air entry bilaterally. No wheezing or rhonchi. Cardiovascular: Positive S1, positive S2. Regular rate and rhythm. Abdomen: Positive bowel sounds in all 4 quadrants. Soft, non-tender, non- distended. : Deferred. Rectal: Deferred. Skin: Warm, dry. Intact. Extremities: 2+ radial pulses bilaterally. No lower extremity edema. Neuro: Awake, alert, oriented x3. No gross motor or sensory deficits. Cranial nerves II through XII intact. Gait not assessed. laboratory and microbiology Laboratory Tests 04/21/24 05:36 Test 04/21/24 05:36 Range/Units Serum Glucose 100 74-106 mg/dL Assessment/Plan Impression: Pneumothorax, apical Large left lower lobe bulla Vaping Anxiety/depression Events: Breathing on room air No respiratory distress. Patient is stable for discharge from the pulmonary standpoint. CXR shows stable trace left pneumothorax. Large left lower lobe bullae. Strongly recommend to abstain from vaping or smoking Large LLL bullae - high risk.. Labs and imaging reviewed. Plan: CT of the chest report and images reviewed. Trace left apical pneumothorax. Large bulla in the left lower lobe that measures 9.8 cm. No acute pulmonary embolism. Monitor closely due to risk of decompensation. On room air Antitussive PRN Pain control Avoid oversedation Followup CXR shows stable trace left pneumothorax. Large left lower lobe bullae. Continue to monitor. Prognosis: Guarded given multiple comorbidities. Rest of plan per hospitalist and other consultants. Thank you Dr. Blanco for allowing me to participate in this patient's care. Further recommendations will depend on patient's clinical course. Please do not hesitate to contact me if you have any questions or concerns. This medical document was created using an electronic medical record system with [employer] dictation system. Although this document has been carefully reviewed, there may still be some phonetic and typographical errors. These areas are purely typographical due to imperfections of the software programs, and do not reflect any compromise in the patient's medical care. Plan discussed with: Patient, Other (SUZANNA Bashir) SHAILESH RAE MD Apr 21, 2024 19:43
== END 2024-04-21 13:20 | disposition home or self-care (01) | DRG 203 ==
LOC: ER 08:12 → OVERFLOW 17:44 → ER 17:48 → EAST 21:09
PROVIDERS: ADMIT Hospitalist; ATTEND Student in an Organized Health Care Education/Training Program
DX: M94.0 Chondrocostal junction syndrome [Tietze] (principal); J43.0 Unilateral pulmonary emphysema [MacLeod's syndrome]; J93.83 Other pneumothorax; F32.A Depression, unspecified; F41.9 Anxiety disorder, unspecified; F17.200 Nicotine dependence, unspecified, uncomplicated; R63.6 Underweight; Z68.1 Body mass index [BMI] 19.9 or less, adult
CPT/HCPCS: 36415; 71045; 71275; 80048; 80053; 84484; 84702; 85025; 93005; 99291; G0378